=== PATIENT | male | born 1980 | race Caucasian/White ===

== ENCOUNTER 2019-04-03 08:20 | Emergency (ER) | payer SELFPAY ==
--- NOTE | 2019-04-03 08:55 | PDOC ---
History of Present Illness - General Stated Complaint: CHEST PAIN Time Seen by Provider: 04/03/19 08:46 - History of Present Illness Initial Comments: 04/03/19 08:59 The patient is a 38 year old male with a history of PE and DVT who presents for evaluation of chest pain and lightheadedness. The patient reports acute onset of left sided sharp chest pain worse with inspiration earlier today with associated lightheadedness prompting his presentation to the ED for further evaluation. He reports that he has had PE and DVT in the past but states that he is no longer on anti-coagulation. He otherwise denies fevers, chills, SOB, cough, nausea, vomiting, abdominal pain, or changes with urination or bowel movements. Past History - Past Medical History Allergies/Adverse Reactions: Allergies Allergy/AdvReac Type Severity Reaction Status Date / Time No Known Allergies Allergy Verified 04/03/19 11:05 Home Medications: Ambulatory Orders NK [No Known Home Medication] 04/03/19 COPD: No Other medical history: History PE 20 years ago, DVT to LLE & Left arm 3 year ago - Immunization History Immunization Up to Date: Yes - Psycho Social/Smoking Cessation Hx Smoking History: Former smoker Have you smoked in the past 12 months: No If you are a former smoker, when did you quit?: 3 years ago Information on smoking cessation initiated: No Hx Alcohol Use: Yes (1 glass wine/day) Drug/Substance Use Hx: No Review of Systems - Review of Systems Comments:: 04/03/19 09:57 Constitutional: No fevers, chills, fatigue, malaise HEENT: No Rhinorrhea, nasal congestion, visual changes Cardiovascular: Chest pain, lightheadedness. No syncope, palpitations, Respiratory: No Cough, SOB, Hemoptysis, Gastrointestinal: No Abdominal pain, Nausea, Vomiting, Constipation, Diarrhea, Melena Genitourinary: No Dysuria, Frequency, Urgency, Hesitancy, Hematuria, Flank pain Musculoskeletal: No Myalgia, arthralgia Skin: No rashes, itching, bruising, pallor Neurologic: No Headache, Dizziness, Numbness, Weakness, or Tingling Psychiatric: No Hallucinations. No SI or HI *Physical Exam - Vital Signs Last Vital Signs Temp Pulse Resp BP Pulse Ox 97.6 F 63 20 139/85 99 04/03/19 08:30 04/03/19 08:30 04/03/19 08:30 04/03/19 08:30 04/03/19 08:30 - Physical Exam 04/03/19 09:57 General Appearance: Nourished. No Apparent Distress HEENT: EOMI, GISEL. No Pharyngeal Erythema, Tonsillar Exudate, Tonsillar Erythema Neck: No Cervical Lymphadenopathy Respiratory/Chest: Lungs Clear, Normal Breath Sounds. No Crackles, Rales, Rhonchi, Wheezing Cardiovascular: Regular Rhythm, Regular Rate. No Murmur, Gallops, Rubs Gastrointestinal/Abdominal: Normal Bowel Sounds, Soft. No Guarding, Rebound, Tenderness Musculoskeletal: No CVA Tenderness Extremity: Normal Capillary Refill Integumentary: Normal Color, Dry, Warm Neurologic: Fully Oriented, Alert, Normal Mood/Affect, Normal Response, ED Treatment Course - LABORATORY CBC & Chemistry Diagram: 04/03/19 09:45 04/03/19 09:45 Medical Decision Making - Medical Decision Making 04/03/19 09:58 The patient is a 38 year old male with a history of PE and DVT who presents for evaluation of chest pain and lightheadedness. Differential includes but is not limited to: ACS, PE, Musculoskeletal, Infectious, Metabolic Derangement. Given the patient's history and physical exam, we will obtain a cbc, cmp, troponin, coags, ekg, chest CTA to evaluate further. We will continue to monitor and reassess while here in the ED. 04/03/19 15:10 CBC, cmp, troponin x2 were unremarkable. Chest CTA did not demonstrate any acute process as read by our radiologist. We are comfortable discharging the patient home in stable condition. Patient made aware of impression and plan, return precautions discussed including but not limited to worsening pain or symptoms, fevers, or signs of infection, chest pain, respiratory distress, inability to tolerate oral intake, dehydration, syncope, or neurologic changes. The patient is to follow up with PMD as recommended within 1 week, follow up information provided and the patient will call for an appointment. The patient is to take medications as instructed for duration of time and continue with supportive care, avoid triggers and precipitants. Patient is safe for outpatient follow-up. Discharge - Discharge Information Problems reviewed: Yes Clinical Impression/Diagnosis: Chest pain Qualifiers: Chest pain type: unspecified Qualified Code(s): R07.9 - Chest pain, unspecified Condition: Stable Disposition: HOME - Follow up/Referral - Patient Discharge Instructions Patient Printed Discharge Instructions: DI for Atypical Chest Pain Additional Instructions: 1) Please follow-up with your primary care doctor in the next 2-3 days. Please call tomorrow to schedule a follow up appointment. If you cannot follow up with your doctor within 1 week please return to the Emergency Department for any urgent issues. 2) Your laboratory / imaging results were normal here in the ER. 3) If you have any worsening of symptoms or any other concerns, please return to the ER immediately. Return if worsening symptoms including fevers, headache, vomiting, visual or hearing disturbances, abdominal pain, chest pain, shortness of breath, syncope, dehydration, inability to take things by mouth/vomiting, altered mental status, or worsening concerning symptoms. 4) Please continue taking your home medications as directed. Side effects may include upset stomach, abdominal pain, vomiting, or diarrhea. Do not drink alcohol with your medications. - Post Discharge Activity
[2019-04-03 09:58] LABS: BASO % 0.6 % (0-2.0); EOS % 2.5 % (0-4.5); HEMATOCRIT 41.5 % (35.4-49); HEMOGLOBIN 14.4 GM/dL (11.7-16.9); LYMPH % 21.8 % (8-40); MCH 32.4 pg (25.7-33.7); MCHC 34.8 g/dl (32.0-35.9); MEAN CELL VOLUME 93.2 fl (80-96); MEAN PLT VOLUME 6.8 fl (7.5-11.1); MONO % 10.7 % (3.8-10.2); NEUT % 64.4 % (42.8-82.8); PLATELET COUNT 280 K/MM3 (134-434); RBC 4.45 M/mm3 (4.00-5.60); RDW 12.8 % (11.9-15.9); WHITE BLOOD COUNT 4.9 K/mm3 (4.0-10.0)
[2019-04-03 10:22] LABS: INR 0.99 (0.83-1.09); PROTHROMBIN TIME (PATIENT) 11.7 SEC (9.7-13.0)
[2019-04-03 10:25] LABS: ACTIVATED PTT 33.8 SECONDS (25.2-36.5)
[2019-04-03 10:44] VITALS: BMI 26.2
--- NOTE | 2019-04-03 10:47 | EKG ---
Test Reason : Blood Pressure : / mmHG Vent. Rate : 060 BPM Atrial Rate : 060 BPM P-R Int : 176 ms QRS Dur : 086 ms QT Int : 394 ms P-R-T Axes : 036 056 040 degrees QTc Int : 394 ms NORMAL SINUS RHYTHM NORMAL ECG NO PREVIOUS ECGS AVAILABLE Confirmed by DARÍO VILLASENOR MD ([id number]) on 04/03/2019 10:47:24 AM Referred By: Confirmed By:DARÍO VILLASENOR MD
[2019-04-03 11:45] LABS: ALBUMIN 3.8 g/dl (3.4-5.0); BILIRUBIN,TOTAL 0.4 mg/dL (0.2-1); CALCIUM 8.6 mg/dL (8.5-10.1); CREATININE 0.7 mg/dL (0.55-1.3); POTASSIUM 4.3 mmol/L (3.5-5.1)
[2019-04-03] MEDS ORDERED: ACETAMINOPHEN 1000 MG/100 ML VIAL (NON FORMULARY) IVPB ONE (12:16)
--- NOTE | 2019-04-03 12:19 | PDOC ---
Attending Attestation - Resident Resident Name: Sharon Chavis - ED Attending Attestation I have performed the following: I have examined & evaluated the patient, The case was reviewed & discussed with the resident, I agree w/resident's findings & plan, Exceptions are as noted - HPI HPI: 04/03/19 13:42 38 years old past medical history significant for PE DVT in the setting of left knee surgery presents with left-sided chest discomfort with inspiration radiating to shoulder currently pain-free started this morning - Physicial Exam PE: 04/03/19 13:57 Vitals: Triage Vital signs reviewed General Appearance: No acute distress, well nourished well developed, Cardiac: Regular rate and rhythym, no murmurs, no rubs, no gallops, Lungs: Clear to auscultation bilateral, good air movement bilaterally, Abdomen: Soft, non distended, normal bowel sounds, non tender to palpation Extremities: Full range of motion to all extremities, no cyanosis, clubbing, or edema Skin: Warm and dry, no rashes or lesions, no rash, no petechiae Psych: Normal mood, normal affect - Medical Decision Making 04/03/19 13:57 Nonexertional atypical chest discomfort now resolved EKG demonstrates normal sinus rhythm no ST elevations or T wave inversions interpreted by me His CTA is negative for PE given his pain this morning we will check 2 troponins his first troponin is negative Findings, the need for follow-up and strict return instructions discussed with patient.
[2019-04-03] MEDS ORDERED: ACETAMINOPHEN INJECTION 100 ML IVPB ONE (13:48)
[2019-04-03 15:42] VITALS: BP 131/84; PULSE 70; TEMP 97.6
== END 2019-04-03 13:25 | disposition home or self-care (01) ==
LOC: JER 08:20
PROC: 3E033NZ Introduction of Analgesics, Hypnotics, Sedatives into Peripheral Vein, Percutaneous Approach (ICD-10-PCS; principal; 2019-04-03)
DX: R07.9 Chest pain, unspecified (principal); Z86.718 Personal history of other venous thrombosis and embolism; Z86.711 Personal history of pulmonary embolism
CPT/HCPCS: 36415; 71275-TC; 80053; 82550; 84484; 85025; 85610; 85730; 93005; 93010; 99284-25; J0131; Q9967